=== PATIENT | female | born 1990 | race Caucasian/White ===

== ENCOUNTER 2018-09-16 19:47 | Emergency (ER) | payer SELFPAY ==
[~2018-09-16] VITALS: Ht 165.1 cm; Wt 85.0 kg
[2018-09-16 19:56] VITALS: BP 123/79
[2018-09-16] MEDS ORDERED: BACITRACIN ZINC OINT 500U/GM, 0.9 GM ONE (20:17)
== END 2018-09-16 20:41 | disposition home or self-care (01) ==
LOC: ED 20:38
DX: S61.211A Laceration without foreign body of left index finger without damage to nail, initial encounter (principal); L03.012 Cellulitis of left finger; W45.8XXA Other foreign body or object entering through skin, initial encounter; Y93.89 Activity, other specified; Y92.89 Other specified places as the place of occurrence of the external cause; Y99.8 Other external cause status
CPT/HCPCS: 99283